=== PATIENT | male | born 1970 ===

== ENCOUNTER 2016-06-03 16:56 | Emergency (ER) | payer OTHER, BC ==
[2016-06-03 17:04] VITALS: BP 131/73; PULSE 64; RESP 16; TEMP 97.6; O2SAT 99
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
== END 2016-06-03 19:17 | disposition home or self-care (01) ==
LOC: H.ER 16:56
DX: Z04.1 Encounter for examination and observation following transport accident (principal)